=== PATIENT | male | born 2000 | race Hispanic/Latino ===

== ENCOUNTER 2023-03-13 18:52 | Emergency (ER) | payer OTHER ==
[~2023-03-13] VITALS: Ht 172.7 cm; Wt 74.8 kg
[2023-03-13] MEDS ORDERED: KETOROLAC 30MG VIAL (30MG/ML) IM ONE (19:30)
[2023-03-13] MEDS ORDERED: IBUP-1493 PO (20:12)
[2023-03-13] MEDS ORDERED: CYCL-309 PO (20:12)
[2023-03-13 20:24] VITALS: BP 124/74
[2023-03-13] MEDS ORDERED: CYCLOBENZAPRINE HCL 10 MG TABLET PO ONE (20:30)
== END 2023-03-13 20:25 | disposition home or self-care (01) ==
LOC: EDH 18:52
DX: S40.811A Abrasion of right upper arm, initial encounter (principal); S09.8XXA Other specified injuries of head, initial encounter; F17.200 Nicotine dependence, unspecified, uncomplicated; W18.39XA Other fall on same level, initial encounter; Y93.02 Activity, running; Y92.89 Other specified places as the place of occurrence of the external cause; Y99.8 Other external cause status
CPT/HCPCS: 99285; 70450; 72125; 96372; J1885